=== PATIENT | female | born 1980 | race Caucasian/White ===

== ENCOUNTER 2016-11-17 06:36 | Day surgery (SDC) | payer BC ==
[2016-11-17] MEDS ORDERED: Lidocaine 2% 5 ML SDV ONE (07:17)
[2016-11-17] MEDS ORDERED: Midazolam 1 MG/ML 2 ML SDV ONE (07:17)
[2016-11-17] MEDS ORDERED: fentaNYL 100 MCG/2 ML SDV ONE (07:17)
[2016-11-17] MEDS ORDERED: Propofol 200 MG/20 ML SDV ONE (07:17)
--- NOTE | 2016-11-17 07:18 | PCM.PREANE ---
Preanesthetic Assessment - Anesthesia/Transfusion/Family Hx Anesthesia History: Prior Anesthesia Without Reaction Family History of Anesthesia Reaction: No Transfusion History: No Prior Transfusion(s) Intubation History: Unknown - Review of Systems General: No Symptoms Pulmonary: No Symptoms Cardiovascular: No Symptoms Gastrointestinal: No symptoms Neurological: No Symptoms Other: Reports: None - Physical Assessment O2 Sat by Pulse Oximetry: 100 Respiratory Rate: 16 Vital Signs: Last Vital Signs Temp 36.4 C 11/17/16 06:59 Pulse 63 11/17/16 06:59 Resp 16 11/17/16 06:59 BP 96/61 11/17/16 06:59 Pulse Ox 100 11/17/16 06:59 Height: 1.63 m Weight: 67.132 kg ASA Class: 1 Mental Status: Alert & Oriented x3 Airway Class: Mallampati = 2 Dentition: Reports: Normal Dentition Thyro-Mental Finger Breadths: 3 Mouth Opening Finger Breadths: 2 ROM/Head Extension: Full Lungs: Clear to auscultation, Normal respiratory effort Cardiovascular: Regular Rate, Regular Rhythm - Lab Values: Laboratory Last Values WBC 4.83 K/uL (4.0-11.0) 11/17/16 06:39 RBC 4.42 M/uL (4.30-5.90) 11/17/16 06:39 Hgb 13.9 g/dL (12.0-16.0) 11/17/16 06:39 Hct 40.5 % (36.0-46.0) 11/17/16 06:39 MCV 91.6 fL (80.0-98.0) 11/17/16 06:39 MCH 31.4 pg (27.0-32.0) 11/17/16 06:39 MCHC 34.3 g/dL (31.0-37.0) 11/17/16 06:39 RDW Std Deviation 42.5 fl (28.0-62.0) 11/17/16 06:39 RDW Coeff of Karen 13 % (11.0-15.0) 11/17/16 06:39 Plt Count 174 K/uL (150-400) 11/17/16 06:39 MPV 11.50 fL (7.40-12.00) 11/17/16 06:39 Neut % (Auto) 47.2 % (48.0-80.0) L 11/17/16 06:39 Lymph % (Auto) 40.6 % (16.0-40.0) H 11/17/16 06:39 Gulf % (Auto) 7.5 % (0.0-15.0) 11/17/16 06:39 Eos % (Auto) 4.1 % (0.0-7.0) 11/17/16 06:39 Baso % (Auto) 0.6 % (0.0-1.5) 11/17/16 06:39 Neut # (Auto) 2.3 K/uL (1.4-5.7) 11/17/16 06:39 Lymph # (Auto) 2.0 K/uL (0.6-2.4) 11/17/16 06:39 Gulf # (Auto) 0.4 K/uL (0.0-0.8) 11/17/16 06:39 Eos # (Auto) 0.2 K/uL (0.0-0.7) 11/17/16 06:39 Baso # (Auto) 0.0 K/uL (0.0-0.1) 11/17/16 06:39 Nucleated RBC % 0.0 /100WBC 11/17/16 06:39 Nucleated RBCs # 0 K/uL 11/17/16 06:39 - Allergies Allergies/Adverse Reactions: Allergies Allergy/AdvReac Type Severity Reaction Status Date / Time No Known Allergies Allergy Verified 11/14/16 07:47 - Blood Blood Available: No Product(s) Available: None - Acknowledgements Anesthesia Type Planned: MAC Pt an Appropriate Candidate for the Planned Anesthesia: Yes Alternatives and Risks of Anesthesia Discussed w Pt/Guardian: Yes Pt/Guardian Understands and Agrees with Anesthesia Plan: Yes PreAnesthesia Questionnaire HEENT History: Reports: None Genitourinary History: Reports: None BEAN SNAPPER History: Reports: Psychiatric History: Reports: Depression - Past Surgical History Head Surgeries/Procedures: Reports: None HEENT Surgical History: Reports: Tonsillectomy Other Female Surgeries/Procedures: Laparotomy for ruptured ovarian cyst '00 Male Surgical History: Reports: Other (See Below) - SUBSTANCE USE Smoking Status *Q: Never Smoker Recreational Drug Use History: No - HOME MEDS Home Medications: Home Meds . [No Known Home Meds] 11/14/16 [History]
[2016-11-17] MEDS ORDERED: Lidocaine 1% with EPINEPHrine 1:100,000 20 ML MDV ONE (07:30)
[2016-11-17] MEDS ORDERED: Ketorolac 30 MG/ML SDV ONE (08:02)
[2016-11-17] MEDS ORDERED: Ondansetron 4 MG/2 ML SDV ONE (08:11)
[2016-11-17] MEDS ORDERED: fentaNYL 100 MCG/2 ML SDV IVPUSH PRN (08:11)
--- NOTE | 2016-11-17 08:21 | PCM.OPNOTE ---
- General Post-Op/Procedure Note Date of Surgery/Procedure: 11/17/16 Operative Procedure(s): LEEP Findings: Transformation zone not completely visualized. IUD strings present at the beginning of procedure. Pre Op Diagnosis: Persistent DILSHAD 1 x 2yrs Post-Op Diagnosis: Same Anesthesia Technique: MAC Primary Surgeon: Leslie Mejia Anesthesia Provider: Odilia Gutiérrez Coordinator Cardiopulmonary Services: Deepti Miranda Pathology: Transformation zone of cervix EBL in mLs: 2 Complications: None known Condition: Good Free Text/Narrative:: JobID#[id number]
--- NOTE | 2016-11-17 09:14 | PCM48HPAN ---
Post Anesthesia Note - EVALUATION WITHIN 48HRS OF ANESTHETIC Vital Signs in Normal Range: Yes Patient Participated in Evaluation: Yes Respiratory Function Stable: Yes Airway Patent: Yes Cardiovascular Function Stable: Yes Hydration Status Stable: Yes Pain Control Satisfactory: Yes Nausea and Vomiting Control Satisfactory: Yes Mental Status Recovered: Yes
[2016-11-17 09:23] VITALS: BP 98/48
--- NOTE | 2016-11-18 11:39 | OR ---
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 The patient did agree to treatment. There was no cryoablation available or laser, so the patient will undergo removal of the transformation zone via loop electrosurgical excision procedure. It was discussed with the patient risk of procedure being bleeding, infection, poor healing, possible damage to the bowel, bladder, ureter, nerves, blood vessels, or any other adjacent structures. It was also discussed the theoretical risk of delivery, premature rupture of membranes secondary to compromise to the cervix both theoretical. Knowing all the above, the patient did sign consent. PREOPERATIVE DIAGNOSIS: Persistent CIN1 x2 years. POSTOPERATIVE DIAGNOSIS: Persistent CIN1 x2 years. PROCEDURE PERFORMED: Loop electrosurgical excision procedure. ANESTHESIA TYPE: MAC with local. ESTIMATED BLOOD LOSS: Approximately 2 mL. FINDINGS: Transformation zone was not completely visualized with the Lugol solution, IUD strings were present at the beginning of the procedure. PATHOLOGY: Transformation zone of the cervix. COMPLICATIONS: None known. CONDITION: Postop was good. DESCRIPTION OF PROCEDURE: The patient was taken to the operating room where the patient was moved over to the OR bed. Prior to start the Venodynes were in place and active prior to start of procedure. The patient did undergo MAC anesthesia. The patient was then placed in the dorsal lithotomy position in the [facility]. The patient was draped in the normal sterile fashion. A coated speculum was then patient placed in the patient's vagina. The IUD strings were visualized. IUD strings were pushed up into the cervical canal with a tissue forceps. Afterwards, the cervix was painted with Lugol solution for an adequate transformation zone visualized just only portion of it. At this time, the 20 x 10 mm LEEP loop was chosen for the procedure. The cautery was set on 30-30 cut and coag with blend. After infiltrating the cervix with approximately 5 mL of lidocaine with epi at 12, 6, and 8 o'clock, the cervix were initially touched with the LEEP loop at the 8 o'clock position and the loop was moved from left to right, therefore, moving the entire transformation zone. Afterwards, the 12 o'clock position was tagged with a suture. The remainder of the surgical bed was cauterized approximately 2 mm to be on the surgical bed and the endocervical canal was cauterized to destroy any residual dysplastic cells. Afterwards, the patient was cleansed, the patient was taken down out of stirru, and the bed was returned to functioning status. Sponge lap, needle, and instrument counts were correct. The patient was taken to the PACU in awake and stable condition patient. NATI / ANALY /[id number] ROSALINDA
== END 2016-11-17 09:43 | disposition home or self-care (01) ==
LOC: MW.SDS 06:36
PROVIDERS: ATTEND Obstetrics & Gynecology
PROC: 0UBC7ZZ Excision of Cervix, Via Natural or Artificial Opening (ICD-10-PCS; principal; 2016-11-17)
DX: N87.0 Mild cervical dysplasia (principal); Z90.89 Acquired absence of other organs; Z98.890 Other specified postprocedural states; Z79.899 Other long term (current) drug therapy; Z88.8 Allergy status to other drugs, medicaments and biological substances
CPT/HCPCS: 36415; 57522; 84703; 85025; J1885; J2250; J2405; J3010; 00940; 88307; J2704